=== PATIENT | male | born 1970 | race Caucasian/White ===

== ENCOUNTER 2016-11-22 06:56 | Day surgery (SDC) | payer MEDICAID ==
[2016-11-22] MEDS ORDERED: Acetaminophen/Codeine elixir 120-12mg/5ml PO PRN (08:34)
[2016-11-22] MEDS ORDERED: Dextrose 5%/0.45% NS 1,000 ML IV SCH (08:45)
[2016-11-22] MEDS ORDERED: ceFAZolin IV 1 gm in Dextrose 1 GM/50 ML BAG IVPB ONE (09:07)
[2016-11-22] MEDS ORDERED: Propofol 10 mg/ml Inj (20 ML) ONE ×2 (09:10→09:36)
[2016-11-22] MEDS ORDERED: Midazolam 2 MG/2 ML VIAL ONE (09:10)
[2016-11-22] MEDS ORDERED: Succinylcholine Chloride 20 mg/ml Syr (5 ml) IV ONE (09:36)
[2016-11-22] MEDS ORDERED: Rocuronium 10 mg/ml (10 ml) ONE (09:36)
[2016-11-22] MEDS ORDERED: Neostigmine Methylsulfate 3mg/3ml Syringe IV ONE (09:36)
[2016-11-22] MEDS ORDERED: Lactated Ringer's 500 ML IV ONE (10:30)
[2016-11-22 11:53] VITALS: BP 148/90; PULSE 74; RESP 18; TEMP 98; O2SAT 98
--- NOTE | 2016-11-22 19:35 | OP ---
PROCEDURE DATE: 11/22/2016 PROCEDURE: Tonsillectomy. SIGNIFICANT FINDINGS: Chronic tonsillitis. DESCRIPTION OF PROCEDURE: The patient was brought into the room, placed in the supine position, anesthesia was initiated through an ET tube. Mouth gag was placed in the oral cavity, opened and suspended on the [employer] the usual manner. The right tonsil was grabbed and pulled medially. Incision was made in the anterior tonsillar pillar using plasma knife. Dissections were done between tonsil and tonsillar fossa using plasma knife until the tonsil was removed. Bleeding was controlled using a plasma knife. Next, the left tonsil was grabbed and pulled medially. Incision was made in the anterior tonsillar pillar using plasma knife. Dissections were done between tonsil and tonsillar fossa using plasma knife until the tonsil was removed. Bleeding was controlled using plasma knife. Both tonsillar beds were vigorously rubbed with plasma knife wand. No bleeding was noted. Mouth gag was let down for 30 seconds and put back up. No bleeding was noted. The mouth gag was taken down and removed. The patient was taken off anesthesia and taken to recovery room in stable manner. Sohail Santos MD [facility]
== END 2016-11-22 12:30 | disposition home or self-care (01) ==
LOC: C.SDS 06:56
PROVIDERS: ATTEND Otolaryngology
DX: J35.01 Chronic tonsillitis (principal)
CPT/HCPCS: 42826; 88304; J0131; J0690; J1100; J2250; J2405; J2704; J2710; J3010; J7040; J7120